=== PATIENT | female | born 1975 | race Caucasian/White ===

== ENCOUNTER 2021-05-30 09:56 | Outpatient (REF) | payer OTHER, SELFPAY ==
[2021-05-30 16:04] LABS: CT PCR NOT DETECTED (Not Detect.)
[2021-05-30 16:05] LABS: NG PCR NOT DETECTED (Not Detect.)
[2021-05-31 13:15] LABS: BV Int Neg Control Negative (Negative); BV Int Pos Control Positive (Positive)
[2021-06-03 14:26] LABS: HPV mRNA E6/E7 rflx Not Detected (Not Detected)
== END 2021-05-30 09:57 | disposition home or self-care (01) ==
LOC: HO.LAB 09:56
PROVIDERS: Visit Provider Advanced Practice Midwife
DX: Z01.411 Encounter for gynecological examination (general) (routine) with abnormal findings (principal); Z11.51 Encounter for screening for human papillomavirus (HPV); N92.0 Excessive and frequent menstruation with regular cycle; F17.200 Nicotine dependence, unspecified, uncomplicated
CPT/HCPCS: 87480; 87491; 87510; 87591; 87624; 87660; 88142

== ENCOUNTER 2021-06-19 14:28 | Outpatient (REF) | payer OTHER, SELFPAY ==
--- NOTE | ~2021-06-19 | US_ITS ---
EXAMINATION: US PELVIS TRANSVAGINAL CLINICAL INFORMATION: Excessive and frequent menstruation. COMPARISON: None TECHNIQUE: Transcutaneous and transvaginal pelvic ultrasound. Transvaginal scanning was performed after voiding to better evaluate the endometrium and adnexa. FINDINGS: The uterus measures 11.0 x 4.6 x 6.9 cm. The uterus is anteverted. No suspicious abnormalities region of the cervix. Nabothian cysts present. The uterine contour is smooth. The endometrium measures 0.9 cm. There appears to be a etdm-ix-mjpkoaqu arcuate uterus. The right ovary measures approximately 2.9 x 1.8 x 2.4 cm. The calculated right ovarian volume is approximately 6.4 mL. A few calcifications are present. There is a 1.4 x 1.4 x 1.2 cm heterogeneous partially cystic structure likely representing corpus luteum. The left ovary measures 2.0 x 0.8 x 1.8 cm. The calculated left ovarian volume is approximately 2.1 mL. A few tiny calcifications are present. There is a 1.2 x 1.1 x 1.5 cm cyst. Minimal free pelvic fluid. US/US pelvic and transvaginal IMPRESSION: Dref-ey-srwnliii arcuate uterus. Right ovarian corpus luteal cyst. Bilateral small ovarian calcifications. Nabothian cysts.
[2021-06-19 14:52] LABS: Hemoglobin 12.5 g/dl (12.0-16.0); Mean Corpuscular HGB Conc 32.9 g/dl (31.0-35.0); Mean Corpuscular Hemoglobin 29.7 pg (27.0-33.0); Mean Corpuscular Volume 90.3 fL (80.0-98.0); Mean Platelet Volume 9.5 fL (9.4-12.3); Platelet Count 373 X10*3/uL (160-400); Red Blood Count 4.21 X10*6/uL (4.20-5.50); Red Cell Distribution Width 12.7 % (11.0-16.0); White Blood Count 8.9 X10*3/uL (4.8-10.8)
[2021-06-19 15:38] LABS: Thyroid Stimulating Hormone 2.15 uIU/mL (0.32-4.0)
== END 2021-06-19 14:29 | disposition home or self-care (01) ==
LOC: HO.US 14:28
PROVIDERS: Visit Provider Advanced Practice Midwife
DX: N92.0 Excessive and frequent menstruation with regular cycle (principal); N92.1 Excessive and frequent menstruation with irregular cycle
CPT/HCPCS: 36415; 76830; 76856; 84443; 85027

== ENCOUNTER 2021-07-03 14:52 | Outpatient (REF) | payer OTHER, SELFPAY | END 2021-07-03 14:53 | disposition home or self-care (01) | LOC: HO.LAB 14:52 | PROVIDERS: Visit Provider Advanced Practice Midwife | DX: N92.0 Excessive and frequent menstruation with regular cycle (principal) | CPT/HCPCS: 58100; 81025; 88305 ==

== ENCOUNTER → 2021-08-08 13:58 | Outpatient (BNVA) | payer OTHER, SELFPAY | PROVIDERS: PCP Physician Assistant; Visit Provider Advanced Practice Midwife | DX: Z71.2 Person consulting for explanation of examination or test findings (principal); N76.0 Acute vaginitis; B96.89 Other specified bacterial agents as the cause of diseases classified elsewhere | CPT/HCPCS: 99212 ==

== ENCOUNTER 2022-08-04 10:40 | Outpatient (REF) | payer MEDICAID, SELFPAY ==
[2022-08-04 11:49] LABS: Hematocrit 39.6 % (37.0-47.0); Hemoglobin 12.6 g/dl (12.0-16.0); Mean Corpuscular HGB Conc 31.8 g/dl (31.0-35.0); Mean Corpuscular Hemoglobin 27.6 pg (27.0-33.0); Mean Corpuscular Volume 86.7 fL (80.0-98.0); Mean Platelet Volume 10.4 fL (9.4-12.3); Platelet Count 334 X10*3/uL (160-400); Red Blood Count 4.57 X10*6/uL (4.20-5.50); Red Cell Distribution Width 13.8 % (11.0-16.0); White Blood Count 7.2 X10*3/uL (4.8-10.8)
[2022-08-04 12:50] LABS: HCG Quantitative < 2 mIU/mL
[2022-08-04 13:01] LABS: TSH reflex Free T4 1.77 uIU/mL (0.32-4.0)
[2022-08-04 18:50] LABS: CT PCR NOT DETECTED (Not Detect.); NG PCR NOT DETECTED (Not Detect.)
[2022-08-05 03:24] LABS: Follicle Stimulating Hormone 5.1 mIU/mL; Lutenizing Hormone 4.1 mIU/mL; Prolactin 5.1 ng/mL
== END 2022-08-04 10:41 | disposition home or self-care (01) ==
LOC: HO.LAB 10:40
PROVIDERS: PCP Physician Assistant; Visit Provider Obstetrics & Gynecology
DX: N93.9 Abnormal uterine and vaginal bleeding, unspecified (principal)
CPT/HCPCS: 0353U; 36415; 83001; 83002; 84146; 84443; 84702; 85027

== ENCOUNTER 2022-08-04 11:17 | Outpatient (REF) | payer MEDICAID, SELFPAY | END 2022-08-04 11:18 | disposition home or self-care (01) | LOC: HO.LNP 11:17 | PROVIDERS: Visit Provider Obstetrics & Gynecology | DX: Z13.89 Encounter for screening for other disorder (principal) ==

== ENCOUNTER 2022-08-08 14:06 | Outpatient (REF) | payer MEDICAID, SELFPAY ==
--- NOTE | ~2022-08-08 | US_ITS ---
EXAMINATION: US PELVIS CLINICAL INFORMATION: Vaginal bleeding COMPARISON: 06/19/2021 TECHNIQUE: Ultrasound of the pelvis is performed using both transabdominal and transvaginal transducers along with Doppler. Transvaginal imaging is performed due to inadequate visualization transabdominally. FINDINGS: Uterus: The uterus is anteverted and measures 10.7 x 4.5 x 6.4 cm. Incidental arcuate morphology. The double wall endometrial thickness is 0.5 mm. The uterus is smooth in contour and has normal myometrial echogenicity. No visible fibroid. Adnexa: Both ovaries are visualized. There is normal color flow to the adnexa. There is no ovarian torsion. There is no pelvic ascites or fluid collection. Left adnexal cyst measures 12 mm and appears simple posterior para ovarian. Both ovaries measure approximately 4 mL in volume within normal limits. US/US pelvic and transvaginal IMPRESSION: No discrete fibroids. No endometrial thickening. Incidental small left paraovarian cyst.
== END 2022-08-08 14:07 | disposition home or self-care (01) ==
LOC: HO.US 14:06
PROVIDERS: PCP Physician Assistant; Visit Provider Obstetrics & Gynecology
DX: N93.9 Abnormal uterine and vaginal bleeding, unspecified (principal)
CPT/HCPCS: 76830; 76856

== ENCOUNTER → 2022-08-21 13:54 | Outpatient (BNVA) | payer MEDICAID, SELFPAY | PROVIDERS: PCP Physician Assistant; Visit Provider Obstetrics & Gynecology ==

== ENCOUNTER 2022-09-30 10:18 | Outpatient (AMB) | payer MEDICAID, SELFPAY ==
--- NOTE | 2022-09-30 10:58 | MHC.OFFVIS ---
Intake Intake Visit Reasons: EMB/US follow up/DO NOT RS Allergies No Known Allergies Allergy (Verified 08/04/22 10:48) PFSH Medical History Hypertension Smoking Surgical History Hx of tubal ligation Family History Maternal Grandmother History of breast cancer Social History Alcohol intake: current Alcohol intake frequency: holidays/special occasions only Patient Tobacco Use Status: Current everyday Tobacco user Cigarettes Per Day: 6 Office Procedures Endometrial Biopsy Details: The patient was counseled regarding the indication and benefits of endometrial sampling to rule out endometrial pathology including not limited to endometrial hyperplasia or endometrial cancer and others; The alternatives (Either do nothing vs. hysteroscopy D&C) & the risks were discussed with the patient including but not limited: pain, uterine perforation, bleeding, infection, possible injury to bladder, bowel, ureter, possible need for blood transfusion with all its possible risks. The patient verbalized understanding all questions answered and signed consent. Urine test done in the office was negative The patient was placed into the dorsal lithotomy position; a speculum was inserted in the vagina. Using aseptic technique for the procedure, the cervix was cleansed with Betadine. The anterior lip of the cervix was grasped with a single tooth tenaculum. The uterus was sounded to 7 cm with a 4 mm Pipelle was used. Tissues samples were obtained and placed in formalin, in a patient labeled container and sent to the pathology department. At the end of the procedure, there was minimal bleeding noted The patient tolerated the procedure well and was discharged in good condition with the following instructions: Nothing in the vagina until the bleeding stops. No sex until the bleeding stops, to call if any of the following occurs: fever (>100.4), flu-like symptoms, abdominal pain, heavy bleeding, four smelling vaginal discharge. The patient was instructed to schedule a Follow up appointment in 2 weeks to discuss pathology results of the biopsy and treatment options. This note was generated with a voice recognition program. Some errors may have been overlooked during the review of this note. Sometimes these errors may affect the content or meaning of a given sentence. 61761-Jstzloxphiz Biopsy Assessment & Plan Assessment & Plan Orders: Orders AMB Endometrial Biopsy Today N93.9 - Abnormal uterine and vaginal bleeding, unspecified Coding Level of Care Code Procedure Only Diagnoses CPT Codes Endometrial Biopsy - CPT: 70710-Hupludotmwh Biopsy ([id number])
== END 2022-09-30 11:00 | disposition home or self-care (01) ==
LOC: HO.HWS 10:18
PROVIDERS: PCP Physician Assistant; Visit Provider Obstetrics & Gynecology
DX: N93.9 Abnormal uterine and vaginal bleeding, unspecified (principal); Z32.02 Encounter for pregnancy test, result negative
CPT/HCPCS: 58100

== ENCOUNTER 2022-09-30 10:18 | Outpatient (REF) | payer MEDICAID, SELFPAY | END 2022-09-30 10:19 | disposition home or self-care (01) | LOC: HO.LNP 10:18 | PROVIDERS: PCP Physician Assistant; Visit Provider Obstetrics & Gynecology | DX: N93.9 Abnormal uterine and vaginal bleeding, unspecified (principal) | CPT/HCPCS: 58100; 81025; 88305 ==

== ENCOUNTER 2022-10-30 11:19 | Outpatient (AMB) | payer MEDICAID, SELFPAY ==
--- NOTE | 2022-10-30 11:19 | MHC.OFFVIS ---
Intake Vital Signs 10/30/22 11:20 Height 5 ft Weight 152 lb BMI 29.7 BP 122/80 Intake Visit Reasons: EMB follow up Ice Maker Required: Yes Ice Maker Language: Organizational Psychologist Name: Mari Information Interpreted: non-clinical & clinical Allergies No Known Allergies Allergy (Verified 10/30/22 11:20) Is last menstrual period known: Yes Last menstrual period: 10/17/22 HPI HPI Comments History of Present Illness Details The patient is presenting for follow-up to discuss the results of her abnormal uterine bleeding workup and options of treatment. The following workup was done.: H&H= 12.6/39.6 TSH, hCG, GC and chlamydia were negative. FSH/LH in the premenopausal range Endometrial biopsy pathology showed disordered proliferative endometrium with no evidence of hyperplasia and/or malignancy. Co testing was done in 06/07 was negative. Mammogram was done at [facility] in 04/10 according to patient an was negative. Pelvic ultrasound showed the following: Uterus: The uterus is anteverted and measures 10.7 x 4.5 x 6.4 cm. Incidental arcuate morphology. The double wall endometrial thickness is 0.5 mm. The uterus is smooth in contour and has normal myometrial echogenicity. No visible fibroid. Adnexa: Both ovaries are visualized. There is normal color flow to the adnexa. There is no ovarian torsion. There is no pelvic ascites or fluid collection. Left adnexal cyst measures 12 mm and appears simple posterior para ovarian. Both ovaries measure approximately 4 mL in volume within normal limits. PFSH Medical History Hypertension Smoking Surgical History Hx of tubal ligation Family History Maternal Grandmother History of breast cancer Social History Alcohol intake: current Alcohol intake frequency: holidays/special occasions only Patient Tobacco Use Status: Current everyday Tobacco user Cigarettes Per Day: 6 Female Reproductive History Menstrual Date of last menstrual period: 10/17/22 Review of Systems Const All systems reviewed & are unremarkable except as noted in HPI and below Reports as per HPI and Reports no additional complaints GI Reports no additional complaints Reports no additional complaints Physical Exam Vital Signs: Last Vital Signs BP 122/80 10/30/22 11:20 BMI result Body Mass Index 29.7 Assessment & Plan Assessment & Plan (1) Abnormal uterine bleeding (AUB): Code(s): N93.9 - Abnormal uterine and vaginal bleeding, unspecified Plan: Discussed with the patient the results of the work up done and options of treatment including but not limited to BCP's, cyclic Progesterone, Mirena IUD, endometrial ablation and hysterectomy. All pros, cons, risks and benefits of each option were discussed with the patient and the patient decided to go ahead with cyclic Provera, so a more detailed discussion re: Progesterone treatment including mechanism of action, benefits (regular menses, endometrial protection form unopposed estrogen and reduction in the risk of endometrial hyperplasia and/or cancer ...), risks (Thrombosis, mood changes, weight gain, breast soreness, ? increased breast ca, others). Instructions were given to use a back- up method for contraception since this is not a method control; patient verbalized understanding and agreed with the plan. Medications: New medroxyprogesterone (Provera) start Provera 1 tablet daily from day 15-24 cyclically every months, day 1 being 1st day of menses 10 mg PO DAILY 30 tabs 3RF 10 days Coding Level of Care Code Est Pt Level 3 (24431) Diagnoses Abnormal uterine bleeding (AUB) N93.9
[2022-10-30 11:20] VITALS: BP 122/80; BMI 29.7
== END 2022-10-30 12:00 | disposition home or self-care (01) ==
PROVIDERS: PCP Physician Assistant; Visit Provider Obstetrics & Gynecology
DX: N93.9 Abnormal uterine and vaginal bleeding, unspecified (principal)
CPT/HCPCS: 99213

== ENCOUNTER → 2022-10-30 11:19 | Outpatient (BNVA) | payer MEDICAID, SELFPAY | PROVIDERS: PCP Physician Assistant; Visit Provider Obstetrics & Gynecology | DX: N93.9 Abnormal uterine and vaginal bleeding, unspecified (principal) | CPT/HCPCS: 99212 ==

== ENCOUNTER 2023-01-28 11:11 | Outpatient (AMB) | payer MEDICAID, SELFPAY ==
--- NOTE | 2023-01-28 11:18 | MHC.OFFVIS ---
Intake Vital Signs 01/28/23 11:21 Height 5 ft Weight 149 lb 14.629 oz BMI 29.3 BP 132/84 Intake Visit Reasons: 3 month follow up meds Planning Feeder Required: Yes Planning Feeder Language: Account Solutions Analyst Name: Mari JIMENEZ Accompanied by: Self / Same As Patient Allergies No Known Allergies Allergy (Verified 01/28/23 11:21) Is last menstrual period known: No HPI HPI Comments History of Present Illness Details Presenting for follow-up Provera. The patient took Provera 10 mg p.o. q.d. 15-24 1st months had a menstrual cycle and since then did not take any additional Provera PFSH Medical History Hypertension Smoking Surgical History Hx of tubal ligation Family History Maternal Grandmother History of breast cancer Social History Alcohol intake: current Alcohol intake frequency: holidays/special occasions only Patient Tobacco Use Status: Current everyday Tobacco user Cigarettes Per Day: 6 Review of Systems Const All systems reviewed & are unremarkable except as noted in HPI and below Reports as per HPI and Reports no additional complaints GI Reports no additional complaints Reports no additional complaints Physical Exam Vital Signs: Last Vital Signs BP 132/84 01/28/23 11:21 BMI result Body Mass Index 29.3 Assessment & Plan Assessment & Plan (1) Abnormal uterine bleeding (AUB): Code(s): N93.9 - Abnormal uterine and vaginal bleeding, unspecified Plan: Instructions in the patient to take Provera 10 mg p.o. q.d. day 15-24 for 3 months and schedule a follow-up appoint afterwards. All questions answered, the patient verbalized understanding Medications: Refilled medroxyprogesterone (Provera) start Provera 1 tablet daily from day 15-24 cyclically every months, day 1 being 1st day of menses 10 mg PO DAILY 10 days 30 tabs 3RF Coding Level of Care Code Est Pt Level 3 (48114) Diagnoses Abnormal uterine bleeding (AUB) N93.9
[2023-01-28 11:21] VITALS: BP 132/84; BMI 29.3
== END 2023-01-28 11:57 | disposition home or self-care (01) ==
LOC: HO.HWS 11:11
PROVIDERS: PCP Physician Assistant; Visit Provider Obstetrics & Gynecology
DX: N93.9 Abnormal uterine and vaginal bleeding, unspecified (principal)
CPT/HCPCS: 99213

== ENCOUNTER → 2023-01-28 11:11 | Outpatient (BNVA) | payer MEDICAID, SELFPAY | PROVIDERS: PCP Physician Assistant; Visit Provider Obstetrics & Gynecology | DX: N93.9 Abnormal uterine and vaginal bleeding, unspecified (principal) | CPT/HCPCS: 99212 ==